=== PATIENT | female | born 1995 | race Caucasian/White ===

== ENCOUNTER 2017-12-06 10:03 | Emergency (ER) | payer OTHER ==
[2017-12-06] MEDS: ACETAMINOPHEN 325 MG TAB PO (11:12)
[2017-12-06] MEDS: ONDANSETRON (ODT) 4 MG TAB ODT (11:12)
== END 2017-12-06 13:00 | disposition home or self-care (01) ==
LOC: FTE 10:03
DX: S09.90XA Unspecified injury of head, initial encounter (principal); R51 Headache; W01.198A Fall on same level from slipping, tripping and stumbling with subsequent striking against other object, initial encounter; Y92.9 Unspecified place or not applicable
CPT/HCPCS: 70450; 72040; 81025; 99284-25